=== PATIENT | male | born 1980 | race Two or more races ===

== ENCOUNTER 2019-06-15 09:45 | Emergency (ER) | payer OTHER ==
[~2019-06-15] VITALS: Ht 175.3 cm; Wt 91.0 kg
[2019-06-15] MEDS ORDERED: KETOROLAC 30MG/ML VIAL IM ONE (10:15)
[2019-06-15] MEDS ORDERED: TETANUS, DIPHTHERIA, PERTUSSIS VAC/PF 0.5ML (>7YR OLD) IM ONE (10:15)
[2019-06-15 11:02] VITALS: BP 128/75
== END 2019-06-15 11:04 | disposition home or self-care (01) ==
LOC: ER 09:45
DX: S60.812A Abrasion of left wrist, initial encounter (principal); S60.512A Abrasion of left hand, initial encounter; Y04.0XXA Assault by unarmed brawl or fight, initial encounter; Y93.89 Activity, other specified; Y92.149 Unspecified place in prison as the place of occurrence of the external cause
CPT/HCPCS: 73110; 73130; 90471; 90715; 96372; 99283; J1885